=== PATIENT | male | born 1995 ===

== ENCOUNTER 2017-01-15 14:09 | Emergency (ER) | payer SELFPAY ==
[2017-01-15] MEDS ORDERED: Apap-Butalbital-Caffeine 325-50-40mg Tab PO STA ×2 (16:45→18:28)
[2017-01-15] MEDS ORDERED: Naproxen 550 mg Tab PO STA (16:45)
[2017-01-15] MEDS ORDERED: Apap-Butalbital-Caffeine 325-50-40mg Tab ONE ×2 (16:53→18:39)
[2017-01-15] MEDS ORDERED: Naproxen 550 mg Tab PO ONE (16:53)
--- NOTE | 2017-01-15 20:17 | CT ---
EXAM: CT Head Without Intravenous Contrast EXAM DATE/TIME: Exam ordered 01/15/2017 6:28 PM CLINICAL HISTORY: 21 years old, male; Condition or disease; Headache; Tension; Additional info: Right sided headache TECHNIQUE: Axial computed tomography images of the head/brain without intravenous contrast. All CT scans at this facility use one or more dose reduction techniques, viz.: automated exposure control; ma/kV adjustment per patient size (including targeted exams where dose is matched to indication; i.e. head); or iterative reconstruction technique. COMPARISON: No relevant prior studies available. FINDINGS: Brain: A 1 cm low density focus is noted in the right temporal lobe near the floor of the middle cranial fossa consistent with a subarachnoid cyst. No hemorrhage. No significant white matter disease. No edema. Ventricles: Unremarkable. No ventriculomegaly. Bones/joints: Focal deformity is noted of the left lamina papyracea could be related to previous trauma. No acute fracture. Soft tissues: Unremarkable. Sinuses: mucosal thickening is noted within the left maxillary sinus. No acute sinusitis. Mastoid air cells: Unremarkable as visualized. No mastoid effusion. IMPRESSION: 1. No acute findings.
--- NOTE | 2017-01-15 21:17 | C.PDOC ---
Time Seen by Provider: 01/15/17 15:58 Chief Complaint (Nursing): Headache History Per: Patient Onset/Duration Of Symptoms: Days (4), Gradual Current Symptoms Are (Timing): Still Present Severity: Moderate Quality: "Pain" Associated Symptoms: denies: Blurred Vision, Vomiting, Extremity Weakness Additional History Per: Prior Records Past Medical History Reviewed: Historical Data, Nursing Documentation, Vital Signs Vital Signs: Last Vital Signs Temp 98.0 F 01/15/17 17:08 Pulse 63 01/15/17 20:15 Resp 16 01/15/17 20:15 BP 124/76 01/15/17 20:15 Pulse Ox 100 01/15/17 20:15 - Medical History PMH: No Chronic Diseases Surgical History: Appendectomy Family History: States: Unknown Family Hx - Social History Hx Alcohol Use: No Hx Substance Use: No - Immunization History Hx Tetanus Toxoid Vaccination: No Hx Influenza Vaccination: No Hx Pneumococcal Vaccination: No Review Of Systems Except As Marked, All Systems Reviewed And Found Negative. Constitutional: Negative for: Fever, Weakness Eyes: Negative for: Vision Change ENT: Negative for: Ear Pain, Nose Congestion, Throat Pain Cardiovascular: Negative for: Chest Pain Respiratory: Negative for: Shortness of Breath Gastrointestinal: Negative for: Vomiting, Abdominal Pain Musculoskeletal: Negative for: Neck Pain Skin: Negative for: Rash Neurological: Positive for: Headache. Negative for: Weakness, Numbness, Seizures, Altered Mental Status Physical Exam - Physical Exam Appears: Non-toxic, No Acute Distress Skin: Normal Color, Warm, Dry, No Rash Head: Atraumatic, Normacephalic Eye(s): bilateral: Normal Inspection, PERRL, EOMI Neck: Normal ROM, Supple Cardiovascular: Rhythm Regular Respiratory: Normal Breath Sounds, No Accessory Muscle Use Gastrointestinal/Abdominal: Soft, No Tenderness Extremity: Normal ROM Neurological/Psych: Oriented x3, Normal Speech, Normal Cognition, Normal Cranial Nerves, Normal Motor, Normal Sensation ED Course And Treatment O2 Sat by Pulse Oximetry: 100 Pulse Ox Interpretation: Normal - CT Scan/US CT head Other Rad Studies (CT/US): Read By Radiologist, Radiology Report Reviewed CT/US Interpretation: IMPRESSION: 1. No acute findings. Reassessment Condition: Improved Disposition Counseled Patient/Family Regarding: Studies Performed, Diagnosis, Need For Followup, Rx Given - Disposition Referrals: [facility] [Outside] Disposition: HOME/ ROUTINE Disposition Time: 21:17 Condition: IMPROVED Additional Instructions: Follow up in the clinic for further evaluation and treatment. Return to the ER if you develop vomiting, weakness, numbness, change in vision, worsening of symptoms or if you have any other concerns. Prescriptions: Metoclopramide [Reglan] 1 tab PO TID PRN #15 tab PRN Reason: Nausea/Vomiting Naproxen [Naprosyn] 1 tab PO BID PRN #20 tab PRN Reason: Pain Instructions: General Headache (ED) Forms: [employer] (Lao) Print Language: TRISTANIAN - Clinical Impression Clinical Impression: Right-sided headache, Subarachnoid cyst
[2017-01-15 21:34] VITALS: BP 110/67; PULSE 59; RESP 20; TEMP 97.3; O2SAT 99
== END 2017-01-15 21:34 | disposition home or self-care (01) ==
LOC: C.ER 14:09
DX: R51 Headache (principal); G93.0 Cerebral cysts
CPT/HCPCS: 70450; 96372; 99285; J2765

== ENCOUNTER 2017-01-21 22:55 | Emergency (ER) | payer SELFPAY ==
[2017-01-21 23:05] VITALS: RESP 14
--- NOTE | 2017-01-21 23:56 | C.PDOC ---
History Of Present Illness Patient presents to the ER with a complaint of a headache for the past 2 weeks, associated with some nausea. Patient was seen in the ER on 01/15, had a negative head CT, was treated and discharged home; however, patient still complains of persistent pain. Denies fever, chills, or vomiting. Time Seen by Provider: 01/21/17 23:55 Chief Complaint (Nursing): Headache History Per: Patient History/Exam Limitations: no limitations Onset/Duration Of Symptoms: Days Current Symptoms Are (Timing): Still Present Severity: Mild Pain Scale Rating Of: 4 Quality: "Pain" Associated Symptoms: Nausea. denies: Photophobia, Blurred Vision, Vomiting, Extremity Weakness Recent travel outside of the [place]: No Past Medical History Reviewed: Historical Data, Nursing Documentation, Vital Signs Vital Signs: Last Vital Signs Temp 97.4 F L 01/21/17 23:02 Pulse 60 01/21/17 23:02 Resp 14 01/21/17 23:02 BP 133/77 01/21/17 23:02 Pulse Ox 98 01/22/17 00:06 - Medical History PMH: No Chronic Diseases Surgical History: Appendectomy Family History: States: Unknown Family Hx - Social History Hx Alcohol Use: No Hx Substance Use: No - Immunization History Hx Tetanus Toxoid Vaccination: No Hx Influenza Vaccination: No Hx Pneumococcal Vaccination: No Review Of Systems Constitutional: Negative for: Fever, Chills Eyes: Negative for: Vision Change Gastrointestinal: Positive for: Nausea. Negative for: Vomiting Musculoskeletal: Negative for: Neck Pain Neurological: Positive for: Headache Physical Exam - Physical Exam Appears: Non-toxic Skin: Warm, Dry Head: Normacephalic Eye(s): bilateral: Normal Inspection, PERRL, EOMI Oral Mucosa: Moist Neck: Trachea Midline, No Midline Cervical Tenderness, No Paracervical Tenderness, Supple Chest: Symmetrical Cardiovascular: Rhythm Regular Respiratory: No Rales, No Rhonchi, No Wheezing Gastrointestinal/Abdominal: Soft, No Tenderness Neurological/Psych: Oriented x3, Other (No focal deficits) ED Course And Treatment - Laboratory Results Result Diagrams: 01/22/17 00:07 01/22/17 00:07 O2 Sat by Pulse Oximetry: 98 (Room air) Pulse Ox Interpretation: Normal Progress Note: Blood work ordered. Solumedrol, toradol, and zofran administered. Disposition Counseled Patient/Family Regarding: Studies Performed, Diagnosis, Need For Followup, Rx Given - Disposition Referrals: [facility] [Outside] [facility] [Outside] Disposition: HOME/ ROUTINE Disposition Time: 23:56 Condition: FAIR Prescriptions: Naproxen [Naprosyn] 1 tab PO BID PRN #25 tab PRN Reason: Pain Ondansetron ODT [Zofran ODT] 1 odt PO BID PRN #6 odt PRN Reason: Nausea/Vomiting Instructions: Acute Headache (DC) Forms: [employer] (Beninese) Print Language: INDONESIAN - Clinical Impression Clinical Impression: Migraine - Scribe Statement The provider has reviewed the documentation as recorded by the Scribjatinder Larson All medical record entries made by the Christianoibjatinder were at my direction and personally dictated by me. I have reviewed the chart and agree that the record accurately reflects my personal performance of the history, physical exam, medical decision making, and the department course for this patient. I have also personally directed, reviewed, and agree with the discharge instructions and disposition.
[2017-01-22 00:10] LABS: BASO % 0.5 % (0.0-2.0); EOS # 0.2 K/uL (0.0-0.7); EOS % 2.6 % (0.0-4.0); HEMATOCRIT 46.5 % (35.0-51.0); LYMPH # 3.9 K/uL (1.0-4.3); LYMPH % 41.6 % (20.0-40.0); MEAN CELL VOLUME 83.1 fL (80.0-94.0); MEAN CORPUSCULAR HEMOGLOBIN 29.6 pg (27.0-31.0); MEAN CORPUSCULAR HGB CONC 35.6 g/dL (33.0-37.0); MEAN PLATELET VOLUME 9.5 fL (7.2-11.7); MONO # 0.8 K/uL (0.0-0.8); MONO % 8.5 % (0.0-10.0); WHITE BLOOD COUNT 9.3 K/uL (4.8-10.8)
[2017-01-22 00:20] LABS: CHLORIDE 98 mmol/L (98-107)
[2017-01-22 00:21] LABS: POTASSIUM 4.4 mmol/L (3.6-5.2); SODIUM 140 mmol/L (132-148)
[2017-01-22 00:23] LABS: GFR AFRICAN-AMERICAN > 60
[2017-01-22 00:24] LABS: BLOOD UREA NITROGEN 18 mg/dL (9-20); CALCIUM 10.2 mg/dl (8.6-10.4); CARBON DIOXIDE 26 mmol/L (22-30); GLUCOSE,RANDOM 101 mg/dL (75-110)
[2017-01-22] MEDS ORDERED: Sodium Chloride 0.9% 500 ML IV ONE ×2 (02:04→02:06)
[2017-01-22 03:20] VITALS: BP 120/78; PULSE 84; TEMP 98.2; O2SAT 99
== END 2017-01-22 03:20 | disposition home or self-care (01) ==
LOC: C.ER 22:55
DX: G43.909 Migraine, unspecified, not intractable, without status migrainosus (principal)
CPT/HCPCS: 80048; 85025; 96374; 96375; 99285; J1885; J2270; J2405; J2930; J7040

== ENCOUNTER 2017-03-29 08:17 | Emergency (ER) | payer OTHER ==
[2017-03-29 08:27] VITALS: RESP 20
--- NOTE | 2017-03-29 08:43 | C.PDOC ---
History Of Present Illness 21 y/o male presents to ED with complaints of penis irritation, dysuria and testicular pain for 2 days. Patient denies fever, chills, nausea, vomiting, discharge, hematuria or any other complaints at this time. Time Seen by Provider: 03/29/17 08:18 Chief Complaint (Nursing): Male Genitourinary History Per: Patient History/Exam Limitations: no limitations Onset/Duration Of Symptoms: Days Current Symptoms Are (Timing): Still Present Past Medical History Reviewed: Historical Data, Nursing Documentation, Vital Signs Vital Signs: Last Vital Signs Temp 97.5 F L 03/29/17 10:07 Pulse 75 03/29/17 10:07 Resp 20 03/29/17 10:07 BP 128/75 03/29/17 10:07 Pulse Ox 97 03/29/17 10:07 - Medical History PMH: No Chronic Diseases Surgical History: Appendectomy Family History: States: No Known Family Hx - Social History Hx Alcohol Use: No Hx Substance Use: No - Immunization History Hx Tetanus Toxoid Vaccination: No Hx Influenza Vaccination: No Hx Pneumococcal Vaccination: No Review Of Systems Constitutional: Negative for: Fever, Chills Cardiovascular: Negative for: Chest Pain Respiratory: Negative for: Shortness of Breath Genitourinary: Positive for: Dysuria, Penile Pain. Negative for: Penile Discharge Skin: Negative for: Rash Neurological: Negative for: Weakness, Numbness Physical Exam - Physical Exam Appears: Non-toxic, No Acute Distress Skin: Normal Color, Warm, Dry, No Rash Head: Atraumatic, Normacephalic Eye(s): bilateral: Normal Inspection Oral Mucosa: Moist Cardiovascular: Rhythm Regular Respiratory: Normal Breath Sounds, No Rales, No Rhonchi, No Wheezing Gastrointestinal/Abdominal: Soft, No Tenderness, No Guarding, No Rebound Male Genital: Testicular Tenderness (right), Other ((+)Penis tip mild erythema . ) Extremity: Normal ROM, Capillary Refill (<2 seconds) Neurological/Psych: Oriented x3 ED Course And Treatment O2 Sat by Pulse Oximetry: 99 (RA) Pulse Ox Interpretation: Normal - CT Scan/US No standard instances Other Rad Studies (CT/US): Read By Radiologist, Radiology Report Reviewed CT/US Interpretation: FINDINGS: RIGHT TESTICLE: Measures 4.5 x 2.4 x 2.9 cm. Normal echotexture and flow. RIGHT EPIDIDYMIS: Epididymis measures 1.1 x 0.7 x 1.1 cm. Grossly unremarkable appearance with normal flow. LEFT TESTICLE: Measures 4.2 x 2.2 x 3.3 cm. Normal echotexture and flow. LEFT EPIDIDYMIS: Epididymis measures 1.2 x 0.8 x 1.6 cm. Grossly unremarkable appearance with normal flow. HYDROCELE: None. VARICOCELE: None. OTHER FINDINGS: None. IMPRESSION: Unremarkable sonographic evaluation of the scrotum. Progress Note: Treated with rocephin and zithromax. Discharged in stable condition Reassessment Condition: Unchanged Medical Decision Making Medical Decision Making: Plan: UA, GC Disposition Counseled Patient/Family Regarding: Studies Performed, Diagnosis, Need For Followup - Disposition Referrals: [facility] [Outside] [facility] [Outside] Disposition: HOME/ ROUTINE Disposition Time: 09:50 Condition: STABLE Additional Instructions: Follow up at [facility] for further evaluation Instructions: Testicle Pain (ED), Dysuria (ED) Forms: [employer] (Zimbabwean) Print Language: INDONESIAN - POA Present On Arrival: None - Clinical Impression Clinical Impression: Testicle pain, Dysuria - PA / COMMISSION CLERK / Resident Statement MD/DO has reviewed & agrees with the documentation as recorded. - Scribe Statement The provider has reviewed the documentation as recorded by the Christianoibjatinder Emerson All medical record entries made by the Ranulfo were at my direction and personally dictated by me. I have reviewed the chart and agree that the record accurately reflects my personal performance of the history, physical exam, medical decision making, and the department course for this patient. I have also personally directed, reviewed, and agree with the discharge instructions and disposition.
[2017-03-29 09:00] LABS: RBC URINE < 1 /hpf (0-3); URINE BILIRUBIN NEGATIVE (NEGATIVE); URINE BLOOD NEGATIVE (NEGATIVE); URINE COLOR Yellow (YELLOW); URINE GLUCOSE (UA) NORMAL (Normal); URINE KETONE NEGATIVE (NEGATIVE); URINE LEUKOCYTE ESTERASE NEG Leu/uL (Negative); URINE PROTEIN NEGATIVE (NEGATIVE); URINE UROBILINOGEN NORMAL mg/dL (0.2-1.0); WBC URINE < 1 /hpf (0-5)
[2017-03-29] MEDS ORDERED: cefTRIAXone (Rocephin) 250 mg Inj IM STA (09:14)
--- NOTE | 2017-03-29 09:29 | US ---
HISTORY: Scrotal pain TECHNIQUE: Realtime sonography through the scrotum with color and doppler flow. COMPARISON: None Available. FINDINGS: RIGHT TESTICLE: Measures 4.5 x 2.4 x 2.9 cm. Normal echotexture and flow. RIGHT EPIDIDYMIS: Epididymis measures 1.1 x 0.7 x 1.1 cm. Grossly unremarkable appearance with normal flow. LEFT TESTICLE: Measures 4.2 x 2.2 x 3.3 cm. Normal echotexture and flow. LEFT EPIDIDYMIS: Epididymis measures 1.2 x 0.8 x 1.6 cm. Grossly unremarkable appearance with normal flow. HYDROCELE: None. VARICOCELE: None. OTHER FINDINGS: None. IMPRESSION: Unremarkable sonographic evaluation of the scrotum.
[2017-03-29 10:08] VITALS: BP 128/75; PULSE 75; TEMP 97.5
[2017-03-29 17:31] VITALS: O2SAT 99
== END 2017-03-29 10:08 | disposition home or self-care (01) ==
LOC: C.ER 08:17
DX: N50.811 Right testicular pain (principal); R30.0 Dysuria
CPT/HCPCS: 76870; 81001; 87491; 87591; 96372; 99284; J0696